=== PATIENT | female | born 1990 | race Caucasian/White ===

== ENCOUNTER 2017-05-07 18:35 | Emergency (ER) | payer OTHER ==
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
--- NOTE | 2017-05-07 20:28 | ED ORDER SUMMARY ---
..... Patient: FRANCISCO OLIVERA V OrderSheet Formerly [facility] VisitID: [id number] [place] [address] 26y, F Registration Date/Time: 05/07/2017 ORDER SHEET Weight: 90.7 kg (stated) Allergies: No Known Drug Allergy GENERAL ORDERS: CT Thorax/Abd/Pelvis w Cont (No) (pending) Urgent (18:51 05/07/2017 HBivens A.R.N.P.) (Ack 18:52 PWeiler ER Tech1) (19:09 KWilliams R.N.) CBC w Diff Urgent (18:52 05/07/2017 HBivens A.R.N.P.) (Ack 18:52 PWeiler ER Tech1) (19:05 KWilliams R.N.) CMP Urgent (18:52 05/07/2017 HBivens A.R.N.P.) (Ack 18:52 PWeiler ER Tech1) (19:05 KWilliams R.N.) UA-Culture if indicated Urgent (18:52 05/07/2017 HBivens A.R.N.P.) (Ack 18:52 PWeiler ER Tech1) (19:30 KWilliams R.N.) Serum Qualitative Urgent (18:52 05/07/2017 HBivens A.R.N.P.) (Ack 18:52 PWeiler ER Tech1) (19:05 KWilliams R.N.) D-Dimer Urgent (18:52 05/07/2017 HBivens A.R.N.P.) (Ack 18:52 PWeiler ER Tech1) (19:05 KWilliams R.N.) MEDICATION ORDERS: IV FLUIDS: IV NS : initial bolus 1000 mL (1000 mL/hr), then none - (NOW) (18:51 05/07/2017 HBivens A.R.N.P.) (19:22 KWilliams R.N.) IV Saline Lock (18:52 05/07/2017 HBivens A.R.N.P.) (19:05 KWilliams R.N.) ORDER SHEET NOTES: [Electronically signed by Lisy Barnhart R.N. (20:50 05/07/2017)] [Electronically signed by Jessi Das (23:09 05/07/2017)] [Electronically locked/signed by Lisy Barnhart R.N. (20:50 05/07/2017)]
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
--- NOTE | 2017-05-07 20:28 | ED ORDER SUMMARY ---
..... Patient: FRANCISCO OLIVERA V OrderSheet [facility] VisitID: [id number] [place] [address] 26y, F Registration Date/Time: 05/07/2017 ORDER SHEET Weight: 90.7 kg (stated) Allergies: No Known Drug Allergy GENERAL ORDERS: CT Thorax/Abd/Pelvis w Cont (No) (pending) Urgent (18:51 05/07/2017 HBivens A.R.N.P.) (Ack 18:52 PWeiler ER Tech1) (19:09 KWilliams R.N.) CBC w Diff Urgent (18:52 05/07/2017 HBivens A.R.N.P.) (Ack 18:52 PWeiler ER Tech1) (19:05 KWilliams R.N.) CMP Urgent (18:52 05/07/2017 HBivens A.R.N.P.) (Ack 18:52 PWeiler ER Tech1) (19:05 KWilliams R.N.) UA-Culture if indicated Urgent (18:52 05/07/2017 HBivens A.R.N.P.) (Ack 18:52 PWeiler ER Tech1) (19:30 KWilliams R.N.) Serum Qualitative Urgent (18:52 05/07/2017 HBivens A.R.N.P.) (Ack 18:52 PWeiler ER Tech1) (19:05 KWilliams R.N.) D-Dimer Urgent (18:52 05/07/2017 HBivens A.R.N.P.) (Ack 18:52 PWeiler ER Tech1) (19:05 KWilliams R.N.) MEDICATION ORDERS: IV FLUIDS: IV NS : initial bolus 1000 mL (1000 mL/hr), then none - (NOW) (18:51 05/07/2017 HBivens A.R.N.P.) (19:22 KWilliams R.N.) IV Saline Lock (18:52 05/07/2017 HBivens A.R.N.P.) (19:05 KWilliams R.N.) ORDER SHEET NOTES: [Electronically signed by Lisy Barnhart R.N. (20:50 05/07/2017)] [Electronically signed by Jessi Das (23:09 05/07/2017)] [Electronically locked/signed by Lisy Barnhart R.N. (20:50 05/07/2017)]
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
--- NOTE | 2017-05-07 23:09 | ED MED RECONCILIATION SUMMARY ---
Patient: FRANCISCO OLIVERA V Medication Reconciliation Report [facility] VisitID: [id number] [address] [place] [address] 26y, F Registration Date/Time: 05/07/2017 Weight: 90.7 kg Height/Length: 63 in. BMI: 35.4 ALLERGIES: No Known Drug Allergy The patient's Home Medications are listed below: THE FOLLOWING MEDICATIONS NEED TO BE RECONCILED: Allergy pills Control Pills The source(s) of the original Home Medication information: patient The following Medications were given to the patient in the Emergency Department: IV NS IV Fluids bolus 0, then 999 mL/hr, administered: 05/07/2017 7:17:00 PM The following Medications were prescribed to the patient: Naproxen 500 mg tablets: take 1 orally every 12 hours as needed for pain. Dispense twenty (20). No refills. -- Jessi Das A.R.N.P. Flexeril 10 mg: Take 1 orally every 8 hours as needed for muscle spasm. Dispense twenty (20). No refills. Substitution is permissible. -- Jessi Das A.R.N.P.
--- NOTE | 2017-05-07 23:09 | ED MED RECONCILIATION SUMMARY ---
Patient: FRANCISCO OLIVERA V Medication Reconciliation Report [facility] VisitID: [id number] [address] [place] [address] 26y, F Registration Date/Time: 05/07/2017 Weight: 90.7 kg Height/Length: 63 in. BMI: 35.4 ALLERGIES: No Known Drug Allergy The patient's Home Medications are listed below: THE FOLLOWING MEDICATIONS NEED TO BE RECONCILED: Allergy pills Control Pills The source(s) of the original Home Medication information: patient The following Medications were given to the patient in the Emergency Department: IV NS IV Fluids bolus 0, then 999 mL/hr, administered: 05/07/2017 7:17:00 PM The following Medications were prescribed to the patient: Naproxen 500 mg tablets: take 1 orally every 12 hours as needed for pain. Dispense twenty (20). No refills. -- Jessi Das A.R.N.P. Flexeril 10 mg: Take 1 orally every 8 hours as needed for muscle spasm. Dispense twenty (20). No refills. Substitution is permissible. -- Jessi Das A.R.N.P.
--- NOTE | 2017-05-07 23:09 | ED MAR SUMMARY ---
..... Medication Administration Record [facility] [address] [place] [address] Patient: FRANCISCO OLIVERA V Visit ID: [id number] 26y, F Weight: 90.7 kg Height/Length: 63 in BMI: 35.4 ALLERGIES: No Known Drug Allergy Start 19:17 05/07/2017 Benito Hanks RLianet, Stop 20:20 05/07/2017 Lisy Barnhart RLynnNLynn Medication Administered: IV NS (SALINE), Dose: IV Fluids over 1 hour(s), Rate: 999 mL/hr, Dispensed: 1000 mL bag, Site: #1 left AC. Medication Ordered: IV NS : initial bolus 1000 mL (1000 mL/hr), then none - (NOW).
--- NOTE | 2017-05-07 23:09 | ED MAR SUMMARY ---
..... Medication Administration Record [facility] [address] [place] [address] Patient: FRANCISCO OLIVERA V Visit ID: [id number] 26y, F Weight: 90.7 kg Height/Length: 63 in BMI: 35.4 ALLERGIES: No Known Drug Allergy Start 19:17 05/07/2017 Benito Hanks RLianet, Stop 20:20 05/07/2017 Lisy Barnhart RLynnNLynn Medication Administered: IV NS (SALINE), Dose: IV Fluids over 1 hour(s), Rate: 999 mL/hr, Dispensed: 1000 mL bag, Site: #1 left AC. Medication Ordered: IV NS : initial bolus 1000 mL (1000 mL/hr), then none - (NOW).
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
== END 2017-05-07 20:47 | disposition home or self-care (01) ==
LOC: ED SRH 18:35
DX: S29.011A Strain of muscle and tendon of front wall of thorax, initial encounter (principal); S39.011A Strain of muscle, fascia and tendon of abdomen, initial encounter; S70.11XA Contusion of right thigh, initial encounter; S70.12XA Contusion of left thigh, initial encounter; V86.59XA Driver of other special all-terrain or other off-road motor vehicle injured in nontraffic accident, initial encounter; Y93.89 Activity, other specified; Y99.9 Unspecified external cause status; Y92.9 Unspecified place or not applicable; I10 Essential (primary) hypertension; F17.210 Nicotine dependence, cigarettes, uncomplicated
CPT/HCPCS: 90004; 90074; 90100; 90469; 91556; 95059; 98428